=== PATIENT | female | born 1980 | race Caucasian/White ===

== ENCOUNTER → 2020-02-12 15:36 | Outpatient (CLI) | payer BC, SELFPAY | PROVIDERS: PCP Nurse Practitioner Family; Visit Provider Family Medicine | DX: Z03.818 Encounter for observation for suspected exposure to other biological agents ruled out (principal) | CPT/HCPCS: U0003 ==

== ENCOUNTER 2020-09-26 10:24 | Emergency (ER) | payer BC, SELFPAY ==
[2020-09-26] VITALS (7 sets, daily range): BP systolic 126–172; BP diastolic 86–113; PULSE 74–104; RESP 18; TEMP 36.9; O2SAT 96–99; BMI 29.1
--- NOTE | 2020-09-26 10:40 | HMH.EDGENADL ---
ED Disposition Clinical Impression: Epigastric pain, Liver lesion, Elevated blood pressure reading Disposition: Home, Self-Care Condition on Discharge: Good Instructions: Fat-Restricted Diet, DI for Acute Abdominal Pain Additional Instructions: See your primary care doctor, call for appointment. Protonix as prescribed. Continue tramadol for pain. Low-fat diet. 2 spots seen on your liver on CAT scan will need further follow-up from your primary care provider. Your blood pressure was elevated, follow-up with your primary care provider for this. Additional instructions for ABDOMINAL PAIN: See your physician as soon as possible for further evaluation. Return immediately if worsening abdominal pain, vomiting, shortness of breath, fever, vomiting of blood or abdominal distention. Prescriptions: Pantoprazole Sodium [Protonix 40mg tablet] 40 mg PO DAILY #15 tab Transmission Status: Received by [facility] Referrals: Harper Sidhu APRN [Primary Care Provider] - - Critical Care Critical Care Time: No Attestation: On 09/26/20, the high probability of a clinically significant, sudden or life threatening deterioration of the following system(s) required my full and direct attention, intervention and personal management. The time I documented below is in addition to time spent performing reported procedures but includes the following listed in this critical care notation. Medical Decision Making - Aroldo Inquiry Pt receiving controlled substance: Yes Aroldo was queried for this patient: Yes Risks and benefits of using a controlled substance: were not discussed with pt by me Vital Signs: 09/26/20 10:25 09/26/20 11:00 09/26/20 11:30 Temperature 98.4 F Temperature Source Oral Pulse Rate 101 H 85 Pulse Rate [Right Radial] 104 H Respiratory Rate 18 Blood Pressure 164/109 H 162/101 H Blood Pressure [Right Arm] 172/104 H Blood Pressure Mean 133 123 Blood Pressure Mean [Right Arm] 126 Blood Pressure Source [Right Arm] Automatic Cuff Blood Pressure Position [Right Arm] Sitting 02 Sat by Pulse Oximetry 99 97 98 Oxygen Delivery Method Room Air 09/26/20 12:00 09/26/20 12:30 09/26/20 13:01 Temperature Temperature Source Pulse Rate 74 87 96 H Pulse Rate [Right Radial] Respiratory Rate Blood Pressure 165/97 H 151/113 H 154/93 H Blood Pressure [Right Arm] Blood Pressure Mean 126 129 127 Blood Pressure Mean [Right Arm] Blood Pressure Source [Right Arm] Blood Pressure Position [Right Arm] 02 Sat by Pulse Oximetry 97 97 97 Oxygen Delivery Method - Lab Data Lab Results 09/26/20 10:37: Urine HCG, Qual Negative 09/26/20 10:46: Urine Color Yellow, Urine Appearance Clear, Urine pH 5.0, Ur Specific [place] 1.015, Urine Protein Negative, Urine Glucose (UA) 3+, Urine Ketones 3+, Urine Blood 1+, Urine Nitrate Negative, Urine Bilirubin Negative, Urine Urobilinogen 0.2, Ur Leukocyte Esterase Negative, Urine RBC 5-10, Urine WBC 3-5, Ur Squamous Epith Cells 3-5, Urine Bacteria None 09/26/20 10:47: WBC 8.6, RBC 5.97 H, Hgb 17.5 H, Hct 53.5 H, MCV 89.7, MCH 29.3, MCHC 32.7, RDW 12.5, Plt Count 353, MPV 7.6, Neut % (Auto) 69.6, Lymph % (Auto) 20.0, Meade % (Auto) 7.2, Eos % (Auto) 1.9, Baso % (Auto) 1.4, Neut # (Auto) 6.0, Lymph # (Auto) 1.7, Meade # (Auto) 0.6, Eos # (Auto) 0.2, Baso # (Auto) 0.1 09/26/20 10:47: Sodium 133 L, Potassium 4.1, Chloride 96 L, Carbon Dioxide 25, Anion Gap 16.1 H, BUN 17, Creatinine 0.50 L, Estimated Creat Clear 195, Estimated GFR 135, Est GFR ( Amer) 164, Glucose 371 H, Calcium 10.2, Total Bilirubin 1.0, AST 29, ALT 28, Alkaline Phosphatase 125, Total Protein 8.2, Albumin 5.1 H, Globulin 3.1, Albumin/Globulin Ratio 1.6 09/26/20 10:47: Amylase 42, Lipase 74 09/26/20 10:47: Troponin I < 0.01 Result diagrams: 09/26/20 10:47 09/26/20 10:47 Orders (Tests/Meds): ED MEDICATIONS Generic Name Dose Route Start Last Admin Trade Name Rustam
[2020-09-26 10:49] LABS: Microscopic, Urine URINE MICROSCOPIC (MICROSCOPIC)
[2020-09-26 10:50] LABS: Appearance,Urine CLEAR (Clear); Bilirubin,Urine Negative (Negative); Blood, Urine 1+ (Negative); Color,Urine YELLOW (Yellow); Glucose,Urine (UA) 3+ (Negative); Ketones,Urine 3+ (Negative); Leukocyte Esterase,Urine Negative (Negative); Nitrate,Urine Negative (Negative); Protein,Urine Negative (Negative); Specific Gravity, Urine 1.015 (1.005-1.030); Urobilinogen,Urine 0.2 EU/dl (0.2)
[2020-09-26 10:52] LABS: Urine Pregnancy, HCG Qual. Negative (Negative)
[2020-09-26 10:57] LABS: Basophils # 0.1 K/mm3 (0-0.2); Basophils % 1.4 % (0.1-2.0); Eosinophils # 0.2 K/mm3 (0.0-0.4); Eosinophils % 1.9 % (0.1-12.0); Hematocrit 53.5 % (37.0-47.0); Hemoglobin 17.5 g/dL (12.2-16.2); Lymphocytes # 1.7 K/mm3 (0.7-4.5); Mean Corpuscular HGB Conc 32.7 g/dL (31.8-35.4); Mean Corpuscular Hemoglobin 29.3 pg (27.0-31.2); Mean Corpuscular Volume 89.7 fl (81-99); Mean Platelet Volume 7.6 fl (7.4-10.4); Monocytes # 0.6 K/mm3 (0.1-1.0); Monocytes % 7.2 % (1.7-9.3); Neutrophils % 69.6 % (37.0-80.0); Platelet Count 353 K/mm3 (142-424); Red Blood Count 5.97 M/mm3 (4.20-5.40); Red Cell Distribution Width 12.5 % (11.5-17.5); White Blood Count 8.6 K/mm3 (4.8-10.8)
--- NOTE | 2020-09-26 11:02 | CT_ITS ---
PROCEDURE: CT ABDOMEN PELVIS W CON CLINICAL INDICATION: upper abdo pain COMPARISON: No exams were available for comparison TECHNIQUE: IV Contrast: 75ML Isovue 370 Oral Contrast None Axial images obtained with sagittal and coronal reformats. All CT scans at the facility use one or more dose reduction, viz: automated exposure control, ma/kV adjustment per patient size (including targeted exams where dose is matched to indication, i.e. head), or iterative reconstruction technique. FINDINGS: LOWER THORAX: 3 cm calcified nodule left lower lobe posteriorly consistent with a granuloma. Minimal atelectatic or fibrotic change in the left lung base. ABDOMEN & PELVIS: Indeterminate 3.8 x 2.7 cm hypodense lesion in the right hepatic dome segment 7 with an additional hypodensity in the right hepatic lobe posteriorly segment 6 at 14 mm. There is borderline splenomegaly at 13 cm. The gallbladder, adrenal glands, pancreas, and kidneys have an unremarkable appearance. No renal or ureteral calculi. No hydronephrosis. No evidence of appendicitis. There is colonic diverticulosis. No evidence of diverticulitis. Cystic lesion is present in the left adnexa at 3.9 cm consistent with an ovarian cyst. Air density is present in the vaginal region consistent with a tampon. No acute bony anomalies. IMPRESSION: 1. There are 2 indeterminate liver lesions. These could be due to hemangiomas or could be neoplastic in nature. Nonemergent MRI with hemangioma protocol without and with gadolinium enhancement suggested. 2. 3.9 cm left ovarian cyst. 3. Colonic diverticulosis. No evidence of diverticulitis Dictated by: Jarret Avilez MD 09/26/2020 12:07 Jarret Avilez MD in [place] 09/26/2020 12:07
[2020-09-26 11:05] LABS: Chloride 96 mmol/L (98-107); Sodium 133 mmol/L (136-145)
[2020-09-26 11:06] LABS: Potassium 4.1 mmoL/L (3.5-5.1)
[2020-09-26 11:08] LABS: Alanine Aminotransferase 28 U/L (12-78); Alkaline Phosphatase 125 U/L (38-126); Anion Gap 16.1 mEq/L (5-15); Aspartate Amino Transferase 29 U/L (14-36); Blood Urea Nitrogen 17 mg/dl (7-17); Carbon Dioxide 25 mmol/L (22.0-30.0); Creatinine Clearance Estimated 195 mL/min (50-200); Estimated Glomerular Filt Rate 135 ml/min (>60); GFR (African American) 164 ML/MIN (>60)
[2020-09-26 11:09] LABS: Albumin Level 5.1 g/dl (3.5-5.0); Albumin/Globulin Ratio 1.6 (1.1-1.8); Calcium 10.2 mg/dl (8.4-10.2); Globulin 3.1 g/dL (1.3-3.2); Glucose 371 mg/dl (74-100); Total Protein,Serum 8.2 g/dl (6.3-8.2)
--- NOTE | 2020-09-26 11:15 | PC.NURSE ---
notified rad of CT order, spoke with wing
[2020-09-26 11:17] LABS: Amylase 42 U/L (30-110); Lipase 74 U/L (23-300)
--- NOTE | 2020-09-26 11:37 | ECG_ITS ---
APPROVED REPORT Exam: Resting ECG HR:75 bpm ECG Measurements Heart Rate 75 AXES AR 156 P 45 QRSd 72 QRS 38 QT 396 T 61 QTc 442 Conclusion Normal sinus rhythm Low voltage QRS Borderline ECG Electronically signed by : Jordan Malik, 09/27/2020 07:32:33
[2020-09-26 11:45] LABS: Troponin I < 0.01 ng/ml (0.00-0.034)
--- NOTE | 2020-09-26 11:57 | PC.NURSE ---
pt back from CT
--- NOTE | 2020-09-26 13:04 | PC.NURSE ---
ER MD in room discussing POC with pt and her per pts request.
--- NOTE | 2020-09-26 13:05 | PC.NURSE ---
notified rad of ultrasound order
--- NOTE | 2020-09-26 13:53 | PC.NURSE ---
Pt being taken for ultrasound.
--- NOTE | 2020-09-26 14:00 | US_ITS ---
PROCEDURE: US GALLBLADDER CLINICAL INDICATION: epigastric pain COMPARISON: No exams were available for comparison FINDINGS: Pancreas: Unremarkable/Not well seen Liver: There are at least 2 lesions of the liver noted on the CT scan. These are not well visualized by ultrasound. Nonemergent MRI suggested for follow-up as described in the CT report.. There is appropriate direction of blood flow within a non dilated portal vein. Right kidney: Unremarkable appearing. No hydronephrosis. Gallbladder: No stones are evident. There is no gallbladder wall thickening. Common duct is normal in diameter. Gallbladder is elongated at 11 x 3 cm IMPRESSION: Negative gallbladder ultrasound. No stones evident. Dictated by: Jarret Avilez MD 09/26/2020 14:19 Jarret Avilez MD in [facility] 09/26/2020 14:19
--- NOTE | 2020-09-26 14:26 | PC.NURSE ---
pt back from ultrasound
--- NOTE | 2020-09-26 14:26 | PC.NURSE ---
pt return from ultrasound
== END 2020-09-26 14:44 | disposition home or self-care (01) ==
PROVIDERS: Emergency Provider Emergency Medicine; PCP Nurse Practitioner Family
DX: R10.13 Epigastric pain (principal); K76.9 Liver disease, unspecified; N83.292 Other ovarian cyst, left side; E11.65 Type 2 diabetes mellitus with hyperglycemia; Z79.84 Long term (current) use of oral hypoglycemic drugs; R03.0 Elevated blood-pressure reading, without diagnosis of hypertension
CPT/HCPCS: 74177; 76705; 80053; 81001; 81025; 82150; 83690; 84484; 85025; 93005; 96374; 96375; 99283; J2405; Q9967

== ENCOUNTER → 2021-11-25 13:08 | Outpatient (CLI) | payer BC, SELFPAY ==
--- NOTE | 2021-11-25 13:26 | ECG_ITS ---
APPROVED REPORT Exam: Resting ECG HR:148 bpm ECG Measurements Heart Rate 148 AXES QRSd 83 QRS 90 QT 271 T 50 QTc 356 Conclusion ATRIAL FLUTTER/TACHYCARDIA WITH RAPID VENTRICULAR RESPONSE LOW QRS VOLTAGE IN PRECORDIAL LEADS [QRS DEFLECTION < 1.0 mV IN CHEST LEADS] MODERATE ST DEPRESSION [0.05+ mV ST DEPRESSION] ABNORMAL ECG UNCONFIRMED REPORT Electronically signed by : Jordan Malik MD 11/26/2021 11:32:58
== END ==
PROVIDERS: PCP Nurse Practitioner Family; Visit Provider Nurse Practitioner Family
DX: R00.2 Palpitations (principal)
CPT/HCPCS: 93005

== ENCOUNTER 2021-11-25 13:57 | Emergency (ER) | payer BC, SELFPAY ==
[2021-11-25] VITALS (10 sets, daily range): BP systolic 142–181; BP diastolic 90–127; PULSE 82–164; RESP 12–19; TEMP 36.9; O2SAT 95–100; BMI 21.6; BMI 28.6
--- NOTE | 2021-11-25 13:57 | ECG_ITS ---
APPROVED REPORT Exam: Resting ECG HR:125 bpm ECG Measurements Heart Rate 125 AXES QRSd 101 QRS 57 QT 284 T 53 QTc 358 Conclusion ATRIAL FLUTTER/TACHYCARDIA WITH RAPID VENTRICULAR RESPONSE INDETERMINATE AXIS LOW QRS VOLTAGE IN PRECORDIAL LEADS [QRS DEFLECTION < 1.0 mV IN CHEST LEADS] JUNCTIONAL ST DEPRESSION, CONSIDER NORMAL VARIANT [0.1+ mV JUNCTIONAL DEPRESSION] ABNORMAL RHYTHM ECG UNCONFIRMED REPORT Electronically signed by : Jordan Malik MD 11/26/2021 11:32:52
--- NOTE | 2021-11-25 14:10 | PC.NURSE ---
IV established and bloos sent to the lab
--- NOTE | 2021-11-25 14:26 | XR_ITS ---
FINAL REPORT CLINICAL HISTORY: fluttering in chest FINDINGS: SINGLE-VIEW CHEST The heart size is normal. The mediastinum is normal. There is a 35 mm retrocardiac mass of uncertain etiology. There is no pneumothorax. IMPRESSION: Retrocardiac mass of uncertain etiology. Recommend chest CT with contrast to further evaluate. Reviewed, Interpreted and Dictated by Asher Ballard III, MD Transcribed by Martha Goetz Authenticated and [facility]
--- NOTE | 2021-11-25 14:33 | PC.NURSE ---
rad at BS for portable xray
[2021-11-25 14:48] LABS: Basophils # 0.2 K/mm3 (0-0.2); Basophils % 1.6 % (0.1-2.0); Eosinophils # 0.2 K/mm3 (0.0-0.4); Eosinophils % 2.1 % (0.1-12.0); Hematocrit 50.5 % (37.0-47.0); Lymphocytes # 2.1 K/mm3 (0.7-4.5); Lymphocytes % 19.8 % (10-50); Mean Corpuscular HGB Conc 31.7 g/dL (31.8-35.4); Mean Corpuscular Hemoglobin 29.3 pg (27.0-31.2); Mean Corpuscular Volume 92.3 fl (81-99); Mean Platelet Volume 8.6 fl (7.4-10.4); Monocytes # 0.6 K/mm3 (0.1-1.0); Monocytes % 5.5 % (1.7-9.3); Neutrophils # 7.6 K/mm3 (1.8-7.8); Platelet Count 358 K/mm3 (142-424); Red Blood Count 5.48 M/mm3 (4.20-5.40); Red Cell Distribution Width 12.8 % (11.5-17.5); White Blood Count 10.7 K/mm3 (4.8-10.8)
--- NOTE | 2021-11-25 14:59 | HMH.EDGENADL ---
Discharge Plan Disposition Patient Disposition: Home, Self-Care Prescriptions Prescriptions: No Action metformin 500 MG tablet 500 mg PO BID pantoprazole 40 MG tablet,delayed release (DR/EC) 40 mg PO DAILY Qty: 15 0RF Referrals Follow up/Referrals: Harper Sidhu APRN [Primary Care Provider] - See instructions Marcos Carrero MD [Staff Physician] - See instructions Activity Restrictions/Add. Instructions Additional Instructions/Restrictions: At this time was felt you are safe to be discharged home. If new or worsening symptoms please do not hesitate to return the emergency department. Please follow-up with Dr. Carrero and cardiology at 9:30 AM in the morning. Clinical Impressions Clinical Impression: Atrial flutter, Lesion of liver, Calcified granuloma of lung Discharge ED Provider: Pk Hess General Adult HPI General Chief complaint: Arrhythmia/Palpitations Stated complaint: arrhythmia Time Seen by Provider: 11/25/21 14:15 Mode of Arrival: Ambulatory Source of Information: Patient Limitations: No Limitations Description of Symptoms (Recalled from ER Triage Doc. by RN): pt to ed c/o heart palpitations x2 days. pt states she was seen in her pcp office today and had some labs drawn and had an outpatient ekg. pt was told she ad an irregular ekg and needed to be seeen and evaluated. pt reports she has been under some stress and thought her palpitations were related. pt states her only medical hx is diabetes. History of Present Illness HPI narrative: Patient is a 41-year-old female past medical history of fah-tjycxvj-afomdevho diabetes who presents emergency department for evaluation of palpitations. Onset was approximately 72 hours ago, waxing and waning. Patient has had 1 episode of lightheadedness, no passing out, no trauma. Symptoms not persistent. They are making her anxious that she is feeling abnormal feelings in her chest. Patient denies chest pain, cough, shortness of breath, other acute complaints at this time. Related Data Home Medications Medication Instructions Recorded Confirmed metformin 500 mg tablet 500 mg PO BID Diabetes 09/26/20 09/26/20 Previous Rx's Medication Instructions Recorded pantoprazole 40 mg tablet,delayed 40 mg PO DAILY #15 tabs 09/26/20 release Allergies Allergy/AdvReac Type Severity Reaction Status Date / Time codeine Allergy Verified 11/25/21 14:24 Sulfa (Sulfonamide Allergy Verified 11/25/21 14:24 Antibiotics) [facility] Medical History (Updated 11/25/21 @ 18:38 by Pk Hess MD) Diabetes Social History Smoking Status: Never smoker alcohol intake: never current occupational status: employed ROS Obtained: Yes All systems reviewed & no additional complaints except as documented Physical Exam General General appearance: alert and in no apparent distress Head Head exam: atraumatic and normocephalic Eye Eye exam: Present PERRL and EOMI ENT ENT exam: Present mucous membranes moist Neck Neck exam: Present normal inspection Chest Chest inspection: Present normal inspection and symmetric chest wall rise Respiratory Respiratory exam: Present normal lung sounds bilaterally; Absent respiratory distress Cardiovascular Cardiovascular exam: Present tachycardia and other (Intermittent tachycardia and normal rhythm, regular) Abdominal Exam Abdominal exam: Present soft; Absent tenderness Extremities Exam Extremities exam: Present normal inspection; Absent edema Neurological Exam Neurological exam: Present alert and oriented X3 Psychiatric Psychiatric exam: Present normal affect Skin Skin exam: Present warm and dry Medical Decision Making Aroldo Inquiry Pt receiving controlled substance: No Vital Signs: 11/25/21 14:00 11/25/21 14:30 Temperature 98.4 F Temperature Source Oral Pulse Rate 96 H Pulse Rate [Left Radial] 164 H Respiratory Rate 18 15 Blood Pressure 181/114 H Blood Pressure [Right Arm
[2021-11-25 15:02] LABS: Anion Gap 11.8 mEq/L (5-15); Blood Urea Nitrogen 18 mg/dl (7-17); Calcium 9.2 mg/dl (8.4-10.2); Carbon Dioxide 25 mmol/L (22.0-30.0); Chloride 100 mmol/L (98-107); Creatinine Clearance Estimated 238 mL/min (50-200); Estimated Glomerular Filt Rate 174 ml/min (>60); GFR (African American) 211 ML/MIN (>60); Glucose 303 mg/dl (74-100); Potassium 3.8 mmoL/L (3.5-5.1); Sodium 133 mmol/L (136-145)
[2021-11-25 15:03] LABS: Calcium 9.4 mg/dl (8.4-10.2); Magnesium 1.7 mg/dl (1.6-2.3)
--- NOTE | 2021-11-25 15:03 | PC.NURSE ---
spoke with pharmacy about drip rate.
[2021-11-25 15:33] LABS: Troponin I < 0.01 ng/ml (0.00-0.034)
--- NOTE | 2021-11-25 17:00 | CT_ITS ---
PROCEDURE INFORMATION: Exam: CTA Chest With Contrast Exam date and time: 11/25/2021 5:19 PM Age: 41 years old Clinical indication: Mass, lump, or swelling in the chest; Additional info: New aflutter, retrocardiac mass TECHNIQUE: Imaging protocol: Computed tomographic angiography of the chest with contrast. 3D rendering (Not supervised by radiologist): MIP and/or 3D reconstructed images were created by the technologist. Radiation optimization: All CT scans at this facility use at least one of these dose optimization techniques: automated exposure control; mA and/or kV adjustment per patient size (includes targeted exams where dose is matched to clinical indication); or iterative reconstruction. Contrast material: ISOVUE 370; Contrast volume: 70 ml; Contrast route: INTRAVENOUS (IV); COMPARISON: CR XR CHEST PORTABLE 11/25/2021 2:40 PM FINDINGS: Pulmonary arteries: No acute pulmonary emboli. No large, central, or segmental emboli. Aorta: No thoracic aortic aneurysm. No evidence of dissection in the chest, though the aorta is suboptimally enhanced on this PE protocol exam. Lungs: A large partially calcified left lower lobe nodule of 3.5 cm which has the appearance of a partially calcified granuloma. Additional smaller calcified left lower lobe granuloma. No consolidation. No significant ground-glass disease. Pleural spaces: Slight posteromedial left pleural thickening. No pleural effusion. No pneumothorax. Heart: The heart is not enlarged. No significant pericardial effusion. No definite coronary artery calcification is visualized. Heart RV/LV ratio: RV/LV ratio approximate 0.85, within normal limits. There is no reflux of contrast into the IVC and hepatic veins to suggest acute right heart strain. Lymph nodes: Multiple calcified left hilar lymph nodes. No significantly enlarged noncalcified nodes in chest, by short axis criteria. Spleen: Multiple calcified splenic granulomas. Intraperitoneal space: Hypoattenuating subdiaphragmatic posterior right lobe liver lesion series 5, images 83 -86, of approximately 3 cm, a possible neoplasm such as hemangioma or focal fatty change, less likely aggressive lesion. However, this is incompletely characterized on this single phase exam and has ill-defined margins. This has HU density measurements of 15-31. Bones/joints: There is no evidence of acute fracture. There are spinal degenerative changes, with multilevel disc narrrowing and spondylosis. Soft tissues: There are no soft tissue masses or fluid collections. IMPRESSION: 1. No pulmonary emboli. 2. Large 3.5 cm partially calcified left lower lobe granuloma. Additional smaller left lower lobe granuloma. No suspicious mass or consolidation. 3. Calcified left hilar lymph nodes. 4. Calcified splenic granulomas. 5. Ill-defined 3 cm hypoattenuating liver lesion, segment VII superior right lobe, possible hemangioma or focal fatty change rather than aggressive neoplasm, but this is incompletely characterized on this single phase exam. Further evaluation with non-emergent liver MRI is recommended. (Reference: Michael) 6. Additional nonemergency and chronic findings as above. REFERENCES: Michael ARMSTRONG, et al. Management of Incidental Liver Lesions on CT: A White Paper of the ACR Incidental Findings Committee. J Am Andrea Radiol. 2017;14(11):2372-9766.
[2021-11-25 18:15] LABS: Troponin I < 0.01 ng/ml (0.00-0.034)
== END 2021-11-25 19:29 | disposition home or self-care (01) ==
PROVIDERS: Emergency Provider Emergency Medicine; PCP Nurse Practitioner Family
DX: I48.92 Unspecified atrial flutter (principal); K76.9 Liver disease, unspecified; J84.10 Pulmonary fibrosis, unspecified
CPT/HCPCS: 36415; 71045; 71275; 80048; 82310; 83735; 84443; 84484; 85025; 93005; 96374; 99291; Q9967

== ENCOUNTER → 2021-11-26 11:07 | Outpatient (CLI) | payer BC, SELFPAY ==
[2021-11-26 13:25] LABS: Alanine Aminotransferase 25 U/L (12-78); Albumin Level 4.4 g/dl (3.5-5.0); Alkaline Phosphatase 115 U/L (38-126); Aspartate Amino Transferase 23 U/L (14-36); Bilirubin,Direct 0.1 mg/dl (0.0-0.4); Bilirubin,Indirect 0.4 mg/dL (0.0-0.9); Bilirubin,Total 0.5 mg/dl (0.2-1.3); Bilirubin,Unconjugated 0.4 mg/dL (0.0-1.1); Chol/HDL Ratio 6.6 (1-3.5); Cholesterol 224 mg/dl (140-200); HDL Cholesterol 34 mg/dl (40-60); Magnesium 1.7 mg/dl (1.6-2.3); Total Protein,Serum 6.8 g/dl (6.3-8.2); Triglycerides 346 mg/dl (30-150); VLDL Cholesterol 69 mg/dL (0-40)
[2021-11-26 13:43] LABS: 25-OH Vitamin D, Total 35.7 ng/mL (30-100)
[2021-11-28 12:07] LABS: Direct LDL Cholesterol 131 mg/dL (100-129)
== END ==
PROVIDERS: PCP Nurse Practitioner Family; Visit Provider Internal Medicine
DX: R00.2 Palpitations (principal); I10 Essential (primary) hypertension; I48.92 Unspecified atrial flutter; K76.9 Liver disease, unspecified; Z72.0 Tobacco use
CPT/HCPCS: 36415; 80061; 80076; 82306; 83735

== ENCOUNTER → 2021-12-03 09:35 | Outpatient (CLI) | payer BC, SELFPAY ==
--- NOTE | 2021-12-03 09:35 | CA_ITS ---
APPROVED REPORT EXAM: Comprehensive 2D, Doppler, and color-flow Echocardiogram [employer] Mill Tender: Niecy Salgado RVT Ht: 5 ft 7 in Wt: 183lbs BSA: 1.95 BP: 144/94 mmHg Indications: A-FLUTTER,LYME DISEASE,DM.SMOKER,HTN 2D Dimensions LVOT 2.01 cm (M/F) 1.5-2.5 LA Volume 27.80 mL LA Volume Index 14.32 mL/m2 (M/F) 16-34 M-Mode Dimensions RVDd 3.66 cm (0.9-2.6) LA Diam 3.48 cm (1.9-4.0) LVDd 4.63 cm (3.5-5.7) Ao Diam 2.75 cm (2.0-3.7) LVDs 2.98 cm (3.5-5.7) IVSd 0.97 cm (0.6-1.1) PWd 0.68 cm (0.6-1.1) EF (Teich) 65.20% FS 35.60% EDV (Teich) 98.80 mL TAPSE 2.48 (<1.7) ESV (Teich) 34.40 mL LV Diastology E Decel Time 220.00 (160-240 msec) E/A Ratio 1.2 MED E' 8.20 (< 7 cm/sec) E'/MED E' Ratio 11.73 (>14) LAT E' 14.30 (<10 cm/sec) E/LAT E' Ratio 6.73 (>14) Aortic Valve AO Peak GR. 6.80 mmHg Mitral Valve MV E Max Tim. 96.00 (40-130 cm/s) MV A Velocity 78.00 (40-130 cm/s) E/A Ratio 1.23 MV Decel. Time 220.00 (160-240 ms) MV PHT 64.00 ms Pulmonary Valve PV Peak Velocity 62.00 (50-150 cm/s) Tricuspid Valve TR P. Velocity 223.00 cm/s RAP Estimate 10.00 mmHg RVSP 29.90 mmHg Left Ventricle Left atrium is normal size, left ventricle is normal size there is no concentric left ventricular hypertrophy, estimated ejection fraction 55% with no regional wall motion abnormality. Diastolic parameters are within normal range. Right Ventricle Right atrium and right ventricle are normal size and contractility. Aortic Valve Aortic valve is minimally thickened and fibrosed there is no aortic stenosis aortic insufficiency. Mitral Valve Mitral valve grossly normal, there is trace mitral regurgitation. Tricuspid Valve Tricuspid valve is grossly normal, there is trace tricuspid regurgitation, tricuspid regurgitation jet plus is inadequate for calculation of the right ventricular systolic pressure. Pulmonic Valve Pulmonic valve is poorly visualized. Great Vessels Aortic root is normal size. Inferior vena cava is normal size with normal inspiratory collapse. Pericardium No significant pericardial effusion noted. Conclusion 1. Normal left ventricular size preserved left ventricular systolic function, estimated ejection fraction 55% with no regional wall motion abnormality, diastolic parameters are within normal range. 2. Trace mitral and tricuspid regurgitation. 3. No significant pericardial effusion noted. 4. Inferior vena cava is normal size with normal inspiratory collapse. Electronically signed by : Vipul Briones MD 12/04/2021 11:52:11
== END ==
PROVIDERS: PCP Nurse Practitioner Family; Visit Provider Internal Medicine
DX: I48.92 Unspecified atrial flutter (principal); R00.2 Palpitations; I10 Essential (primary) hypertension; K76.9 Liver disease, unspecified
CPT/HCPCS: 93306

== ENCOUNTER → 2021-12-17 08:09 | Outpatient (CLI) | payer BC, SELFPAY ==
--- NOTE | 2021-12-17 08:09 | NM_ITS ---
APPROVED REPORT Exam: Nuclear Stress Test Indication: palpitations..fatigue Patient Location: Outpatient Stress Tech: Vielka Quispe HI Tech:MARS Schneider RT(R)(N) Ht: 5 ft 7 in Wt: 183 lbs Bra Size: 38d HR: 63 bpm BP: 126/78 mmHg BSA: 1.95 m2 TID: 1.18 BMI: 28.6 History: palpitations..fatigue Procedure: Patient exercised on Lauri protocol 8:16 minutes and sec, resting heart rate 63 bpm, resting blood pressure 126/78 mmHg, with exercise maximum heart rate achived was 143 bpm which is 81 % of the maximum predicted heart rate and blood pressure was 205/91 mmHg. Patient denied any complaint of chest pain. Patient has Good exercise capacity, achieved 10.1 METs of workload on treadmill, the blood pressure response to exercise was Hypertensive. Electrocardiogram Resting electrocardiogram shows sinus rhythm, with exercise there is less than 1.[address] segment depression noted from the baseline EKG. The EKG portion of the exercise Myoview is negative for ischemia. Cardiac Stress and Resting SPECT Images: Cardiac Stress and Resting SPECT images were obtained using technetium 99m Myoview 32.5 mCi stress and 10.37 mCi at rest. Gated SPECT analysis of segmental wall motion and calculation of the ejection fraction also done. Prone images were also obtained. Cardiac stress and rest SPECT may show mild fixed defect in the anterior wall with normal contractility in the gated SPECT is likely secondary to soft tissue attenuation, no reversible ischemia seen, computer derived ejection fraction is 55% with no regional wall motion abnormality, right ventricle is normal size and contractility. Conclusion: 1. The EKG portion of the exercise Myoview is negative for ischemia, at 81% of the maximum corrected heart rate, the blood pressure response to exercise was hypertensive. Patient has good exercise capacity achieved 10.1 METs of workload on treadmill. 2. No scintigraphic evidence of reversible ischemia seen at this level of exercise, computer derived ejection fraction is 55% with no regional wall motion abnormality, right ventricle is normal size and contractility. 3. Normal perfusion imaging at 81% of the maximum predicted heart rate. Electronically signed by : Vipul Briones MD 12/18/2021 09:37:18
--- NOTE | 2021-12-17 08:09 | CA_ITS ---
APPROVED REPORT Exam: Exercise Treadmill Technologist: Vielka Quispe, Ht: 5 ft 7 in Wt: 183 lbs BSA: 1.95 m2 HR: 59 bpm BP: 128/84 mmHg Rhythm: sinus saul, otherwise normal Indications: Aflutter Medical History Medical History: HTN, Hyperlipidemia, Diabetes Medications: Asa,,,,, Metformin,,,,, Atorvastatin,,,,, BisOPROLOL,,,,, Cardiac Risk Factors: HTN, Hyperlipidemia, Diabetes (non-insulin), Smoking Stress Test Details Test: Lauri HR Resting HR: 63 bpm Max Heart Rate (APMHR): 177.560740 bpm Max HR Achieved: 143 bpm Target HR (85% APMHR): 150.216989 bpm % of APMHR: 80.79 Recovery HR: 103 bpm BP Resting BP: 126/78 mmHg Max BP: 205/91 mmHg Recovery BP: 205.0/91.0 mmHg ECG Resting ECG: sinus saul, otherwise normal Clinical Exercise duration: 08:16 min Highest Stage Achieved: Exercise capacity: 10.1 METs Stress ECG Conclusion During lauri protocol pt exerised total of 8:15 minutes into stage 3. No CP noted. No arrhythmias noted. Normal ST response to exercise. Normal GXT to HR achieved, 81% of PM. Blunted HR on beta regan. Myoview images reported separately. Test Summary RECOVERY 05:00 0.0 0.0 75 . 138/ 80 . . REST . . . . . . . Standing REST 03:00 0.0 0.0 63 . 126/ 78 . . Stage 1 01:00 10.0 1.7 78 . . . . Stage 1 02:00 10.0 1.7 86 . . . . Stage 1 03:00 10.0 1.7 91 . 144/ 78 . . Stage 2 01:00 12.0 2.5 94 . . . . Stage 2 02:00 12.0 2.5 99 . . . . Stage 2 03:00 12.0 2.5 102 . 170/ 78 . . Stage 3 01:00 14.0 3.4 119 . . . . Stage 3 02:00 14.0 3.4 138 . . . . Stage 3 02:16 14.0 3.4 143 . . . Stop exercise at 08:16 RECOVERY 01:00 0.0 0.0 111 . . . . RECOVERY 02:00 0.0 0.0 99 . . . . RECOVERY 03:00 0.0 0.0 85 . 205/ 91 . . RECOVERY 04:00 0.0 0.0 80 . 152/ 78 . . RECOVERY 05:00 0.0 0.0 75 . 138/ 80 . . RECOVERY 05:46 0.0 0.0 78 . 138/ 80 . . Electronically signed by : Vipul Briones MD 12/18/2021 09:34:34
[2021-12-17 11:46] LABS: Blood Urea Nitrogen 17 mg/dl (7-17); Estimated Glomerular Filt Rate 174 ml/min (>60); GFR (African American) 211 ML/MIN (>60)
== END ==
PROVIDERS: PCP Nurse Practitioner Family; Visit Provider Internal Medicine
DX: R00.2 Palpitations (principal); I48.92 Unspecified atrial flutter; I10 Essential (primary) hypertension; K76.9 Liver disease, unspecified
CPT/HCPCS: 36415; 78452; 82565; 84520; 93017; A9502

== ENCOUNTER → 2021-12-19 08:36 | Outpatient (CLI) | payer BC, SELFPAY ==
--- NOTE | 2021-12-19 08:37 | MR_ITS ---
FINAL REPORT CLINICAL HISTORY: liver mass found on prior CT scan. FINDINGS: Multiplanar MR imaging of the abdomen was performed without and with contrast. Two enhancing lesions in the right posterior liver. Largest lesion in the posterior liver dome measures 3.5 x 3.1 cm. Smaller lesion in the posterior subcapsular liver at the level of the upper pole the right kidney measures 1.4 cm. There is no evidence of biliary ductal dilatation. The gallbladder has an unremarkable appearance. No other mass or adenopathy is identified. No abnormal fluid collection is seen. IMPRESSION: Enhancing liver lesions as described, favor hemangiomas. Recommend six-month follow-up with delayed imaging. Reviewed, Interpreted and Dictated by Neville Sethi MD Transcribed by Ephraim Manriquez Authenticated and [facility]
== END ==
PROVIDERS: PCP Nurse Practitioner Family; Visit Provider Internal Medicine
DX: K76.9 Liver disease, unspecified (principal)
CPT/HCPCS: 74183; A9576